=== PATIENT | male | born 1940 | race Caucasian/White ===

== ENCOUNTER 2020-07-28 08:55 | Emergency (ER) | payer MEDICARE ==
[~2020-07-28] VITALS: Ht 177.8 cm; Wt 74.8 kg
[2020-07-28 08:55] VITALS: BP_SYST 148
[2020-07-28 09:44] LABS: BASOPHILS % (AUTO) 0.5 % (0.0-2.0); EOSINOPHILS # (AUTO) 0.1 K/uL (0.0-0.4); EOSINOPHILS % (AUTO) 1.8 % (0.0-4.0); HEMATOCRIT 39.7 % (36-54); HEMOGLOBIN 13.5 g/dL (14.0-18.0); LYMPHOCYTES # (AUTO) 2.2 K/uL (1.0-5.5); LYMPHOCYTES % (AUTO) 40.6 % (20.5-51.5); MEAN CORPUSCULAR HEMOGLOBIN 32 pg (27-31); MEAN CORPUSCULAR HGB CONC 34 % (32-36); MEAN CORPUSCULAR VOLUME 94 fL (79.0-98.0); MONOCYTES # (AUTO) 0.6 K/uL (0.0-1.0); MONOCYTES % (AUTO) 10.4 % (1.7-9.3); NEUTROPHILS # (AUTO) 2.6 K/uL (1.8-7.7); NEUTROPHILS % (AUTO) 46.7 % (40.0-70.0); PLATELET COUNT (AUTO) 202 K/uL (130-430); RED BLOOD CELL COUNT(AUTO) 4.24 MIL/uL (4.2-6.2); RED CELL DISTRIBUTION WIDTH 14.6 % (9.0-15.0); WHITE BLOOD COUNT (AUTO) 5.5 K/uL (4.8-10.8)
[2020-07-28 10:00] LABS: ANION GAP 8 (5-15); CHLORIDE 106 mmol/L (98-107); CREATININE 0.98 mg/dL (0.55-1.30); GLUCOSE 92 mg/dL (70-99); POTASSIUM 3.9 mmol/L (3.5-5.1); SODIUM SERUM 142 mmol/L (136-145); UREA NITROGEN, BLOOD 17 mg/dL (8-21)
[2020-07-28 10:03] LABS: INR 1.1 (0.80-1.20)
[2020-07-28 10:05] LABS: ALANINE AMINOTRANSFERASE 10 U/L (12-78); ALBUMIN 3.7 g/dL (3.4-4.8); ASPARTATE AMINOTRANSFERASE 14 U/L (10-37); TOTAL BILIRUBIN 0.7 mg/dL (0.0-1.0)
[2020-07-28 12:13] LABS: BILIRUBIN,URINE NEGATIVE (NEGATIVE); BLOOD, URINE NEGATIVE (NEGATIVE); COLOR,URINE YELLOW (YELLOW); GLUCOSE,URINE NEGATIVE (NEGATIVE); KETONES,URINE TRACE (NEGATIVE); LEUKOCYTE ESTERASE ,URINE NEGATIVE (NEGATIVE); NITRITE, URINE NEGATIVE (NEGATIVE); PROTEIN URINE NEGATIVE (NEGATIVE); UROBILINOGEN,URINE 0.2 (0.2-1.0)
[2020-07-28 12:14] LABS: CLARITY/URINE SLIGHTLY HAZY (CLEAR)
[2020-07-28 14:57] VITALS: BP_SYST 135
== END 2020-07-28 14:57 | disposition home or self-care (01) ==
LOC: SED 08:55
DX: R53.1 Weakness (principal)
CPT/HCPCS: 36415; 71045; 80053; 81003; 83605; 84484; 85025; 85610-TC; 85730-TC; 87040-TC; 93005; 99285

== ENCOUNTER 2023-09-12 18:16 | Emergency (ER) | payer MEDICARE ==
[~2023-09-12] VITALS: Ht 170.2 cm; Wt 61.2 kg
[2023-09-12 18:19] VITALS: BP_SYST 136; PULSE 94; RESP 18; TEMP 98.3; O2SAT 98
[2023-09-12 18:51] LABS: BASOPHILS % (AUTO) 0.5 % (0.0-2.0); EOSINOPHILS # (AUTO) 0.1 K/uL (0.0-0.4); EOSINOPHILS % (AUTO) 1.9 % (0.0-4.0); HEMATOCRIT 37.1 % (36-54); HEMOGLOBIN 12.8 g/dL (14.0-18.0); LYMPHOCYTES # (AUTO) 2.1 K/uL (1.0-5.5); LYMPHOCYTES % (AUTO) 30.8 % (20.5-51.5); MEAN CORPUSCULAR HEMOGLOBIN 32 pg (27-31); MEAN CORPUSCULAR HGB CONC 34 % (32-36); MEAN CORPUSCULAR VOLUME 93 fL (79.0-98.0); MONOCYTES # (AUTO) 0.5 K/uL (0.0-1.0); MONOCYTES % (AUTO) 7.3 % (1.7-9.3); NEUTROPHILS % (AUTO) 59.5 % (40.0-70.0); PLATELET COUNT (AUTO) 240 K/uL (130-430); RED CELL DISTRIBUTION WIDTH 14.9 % (9.0-15.0); WHITE BLOOD COUNT (AUTO) 6.7 K/uL (4.8-10.8)
[2023-09-12] MEDS ORDERED: MOM PO (18:56)
[2023-09-12] MEDS ORDERED: ZINC50TA15 PO (18:56)
[2023-09-12] MEDS ORDERED: ACET-2634 PO (18:56)
[2023-09-12] MEDS ORDERED: BISA-140 RC (18:56)
[2023-09-12] MEDS ORDERED: CARB1TAB33 PO ×2 (18:56)
[2023-09-12] MEDS ORDERED: ERGO1250 PO (18:56)
[2023-09-12] MEDS ORDERED: AMIN960L13 PO (18:56)
[2023-09-12] MEDS ORDERED: DOCU-144 PO (18:56)
[2023-09-12] MEDS ORDERED: MEMA5TAB PO (18:56)
[2023-09-12] MEDS ORDERED: MULT-1117 PO (18:56)
[2023-09-12] MEDS ORDERED: FLEETMO RC (18:56)
[2023-09-12] MEDS ORDERED: VITA1CAP PO (18:56)
[2023-09-12] MEDS ORDERED: ACET325T PO (18:56)
[2023-09-12] MEDS ORDERED: ASA81 PO (18:56)
[2023-09-12] MEDS ORDERED: SENN8.6T19 PO (18:56)
[2023-09-12] MEDS ORDERED: ASCO500T20 PO (18:56)
[2023-09-12] MEDS ORDERED: TRAZ-250 PO (18:56)
[2023-09-12] MEDS ORDERED: ENTA200T30 PO (18:56)
[2023-09-12] MEDS ORDERED: OSCD500 PO (18:56)
[2023-09-12 19:01] LABS: ANION GAP 9 (5-15); CARBON DIOXIDE 27 mmol/L (23-29); CHLORIDE 105 mmol/L (98-107); CREATININE 0.77 mg/dL (0.55-1.30); GLUCOSE 118 mg/dL (74-106); POTASSIUM 3.9 mmol/L (3.5-5.1); SODIUM SERUM 141 mmol/L (136-145); UREA NITROGEN, BLOOD 25 mg/dL (8-21)
[2023-09-12 19:17] LABS: ALBUMIN 3.5 g/dL (3.4-4.8); ASPARTATE AMINOTRANSFERASE 11 U/L (10-37); BILIRUBIN,DIRECT 0.1 mg/dL (0.0-0.3); CREATINE KINASE, TOTAL 40 U/L (39-308); PROTHROMBIN TIME 10.3 SECS (9.5-12.5); TOTAL BILIRUBIN 0.3 mg/dL (0.0-1.0); TOTAL PROTEIN, SERUM 7.1 g/dL (6.4-8.3)
[2023-09-12 19:20] LABS: ALCOHOL, BLOOD < 3 mg/dL (<10)
[2023-09-12 19:30] LABS: ALANINE AMINOTRANSFERASE 8 U/L (12-78)
[2023-09-12 20:32] LABS: BILIRUBIN,URINE NEGATIVE (NEGATIVE); BLOOD, URINE NEGATIVE (NEGATIVE); CLARITY/URINE CLEAR (CLEAR); COLOR,URINE YELLOW (YELLOW); GLUCOSE,URINE NEGATIVE (NEGATIVE); KETONES,URINE 1+ (NEGATIVE); LEUKOCYTE ESTERASE ,URINE NEGATIVE (NEGATIVE); NITRITE, URINE NEGATIVE (NEGATIVE); PH,URINE 6.5 (5.0-8.0); PROTEIN URINE NEGATIVE (NEGATIVE); UROBILINOGEN,URINE 0.2 (0.2-1.0)
[2023-09-12 21:03] LABS: BARBITURATE, URINE NEGATIVE (NEG <=200); BENZODIAZEPINE, URINE NEGATIVE (NEG <=150); CANNABINOID, URINE NEGATIVE (NEG <=50); COCAINE, URINE NEGATIVE (NEG <=150); METHAMPHETAMINES SCREEN,URINE NEGATIVE (NEG <=500); OPIATE, URINE NEGATIVE (NEG <=100); PHENCYCLIDINE SCREEN,URINE NEGATIVE (NEG <=25); UR TRICYCLIC ANTIDEPRESSANTS NEGATIVE (NEG <=300); URINE AMPHETAMINE NEGATIVE (NEG <=500); URINE METHADONE NEGATIVE (NEG <=200); URINE OXYCODONE SCREEN NEGATIVE (NEG <=100)
[2023-09-12 21:37] VITALS: BP_SYST 103; PULSE 77; RESP 20; TEMP 99.6; O2SAT 95
== END 2023-09-12 21:37 ==
LOC: SED 18:16
DX: R41.82 Altered mental status, unspecified (principal); Z86.79 Personal history of other diseases of the circulatory system; Z79.899 Other long term (current) drug therapy
CPT/HCPCS: 99285; 70450; 71045; 80307; 80076; 80048; 82140; 82550; 85025; 85610; 85730; 87040; 84484; 36415; 93005; 83605; 82397; 81001; 81003; G0482